=== PATIENT | female | born 2000 | race Caucasian/White ===

== ENCOUNTER 2023-01-03 02:03 | Emergency (ER) | payer SELFPAY ==
[~2023-01-03] VITALS: Ht 165.1 cm; Wt 86.0 kg
[2023-01-03 02:09] VITALS: BP 133/88
== END 2023-01-03 08:13 | disposition left against medical advice (07) ==
LOC: ER 02:03
DX: Z53.21 Procedure and treatment not carried out due to patient leaving prior to being seen by health care provider (principal)
CPT/HCPCS: 99281

== ENCOUNTER 2024-08-18 09:34 | Emergency (ER) | payer MEDICAID ==
[~2024-08-18] VITALS: Ht 165.1 cm; Wt 73.0 kg
[2024-08-18 09:38] VITALS: O2SAT 99
[2024-08-18] MEDS ORDERED: DOCU-150 MT (11:07)
[2024-08-18] MEDS ORDERED: POLY17PO3 MT (11:07)
[2024-08-18] MEDS ORDERED: DIBU28OI RC (11:07)
[2024-08-18 11:56] VITALS: BP 127/70; PULSE 81; RESP 16; TEMP 36.89184; O2SAT 99
== END 2024-08-18 12:10 | disposition home or self-care (01) ==
LOC: ER 09:34
DX: K59.00 Constipation, unspecified (principal)
CPT/HCPCS: 99282

== ENCOUNTER 2024-09-15 11:33 | Emergency (ER) | payer MEDICAID, MEDICARE ==
[~2024-09-15] VITALS: Ht 165.1 cm; Wt 72.0 kg
[~2024-09-15 11:33] MED LIST: DIBU28OI RC; DOCU-422 MT; POLY17PO3 MT
[2024-09-15 11:49] VITALS: O2SAT 100
[2024-09-15 13:14] LABS: CHLORIDE 105 mEq/L (98-107); POTASSIUM 3.6 mEq/L (3.5-5.1); SODIUM 139 mEq/L (136-145)
[2024-09-15 13:15] LABS: CALCIUM 9.8 mg/dL (8.7-10.4); CARBON DIOXIDE 24 mEq/L (21-32)
[2024-09-15 13:16] LABS: BASOPHILS % 0.9 % (0.0-2.0); EOSINOPHILS % 1.1 % (0.0-5.0); HEMATOCRIT. 46.2 % (36.0-48.0); HEMOGLOBIN. 15.8 g/dL (12.0-16.0); LYMPHOCYTES % 44.6 % (20.0-50.0); MEAN CORPUSCULAR HEMOGLOBIN 30.8 pg (28.0-32.0); MEAN CORPUSCULAR HGB CONC 34.3 g/dL (31.0-37.0); MEAN CORPUSCULAR VOLUME 89.6 fL (81.0-99.0); MEAN PLATELET VOLUME 9.1 fl (7.4-10.4); MONOCYTES % 4.8 % (2.0-8.0); NEUTROPHILS % 48.6 % (40.0-76.0); PLATELET 285 x1000/uL (130-400); RED BLOOD CELL COUNT 5.15 mill/uL (4.2-5.4); WHITE BLOOD COUNT 5.6 x1000/uL (4.5-11.0)
[2024-09-15 13:20] LABS: CREATININE 0.7 mg/dL (0.6-1.0); GLUCOSE 89 mg/dL (70-105); UREA NITROGEN BLOOD 7 mg/dL (9-23)
[2024-09-15] MEDS: MAGNESIUM/ALUMINUM HYDROXIDE/SIMETHICONE 30ML UDC PO ONE (13:23)
[2024-09-15] MEDS: FAMOTIDINE 20MG TABLET PO ONE (13:23)
[2024-09-15 14:18] LABS: HCG SCREEN NEGATIVE
[2024-09-15 14:23] LABS: TROPONIN I HIGH SENSITIVITY < 4 ng/L (3.0-34)
[2024-09-15 16:01] VITALS: BP 118/74; PULSE 80; RESP 16; TEMP 37.00296; O2SAT 100
== END 2024-09-15 16:02 | disposition home or self-care (01) ==
LOC: ER 11:33
DX: R13.10 Dysphagia, unspecified (principal); F41.9 Anxiety disorder, unspecified; F12.19 Cannabis abuse with unspecified cannabis-induced disorder
CPT/HCPCS: 36415; 71045; 80048; 84484; 84703; 85025; 85379; 93005; 99285

== ENCOUNTER 2024-09-17 11:11 | Emergency (ER) | payer MEDICARE ==
[~2024-09-17] VITALS: Ht 165.1 cm; Wt 73.0 kg
[2024-09-17 11:18] VITALS: BP 128/82; TEMP 98.8; O2SAT 100
[2024-09-17 11:22] VITALS: PULSE 134; RESP 18; O2SAT 96
[2024-09-17] MEDS ORDERED: ALPRAZOLAM 0.25 MG TABLET PO ONE (11:30)
[2024-09-17] MEDS ORDERED: ALPRAZOLAM 0.25 MG TABLET PO NR (13:45)
== END 2024-09-17 16:15 | disposition home or self-care (01) ==
LOC: ER 11:11
DX: R06.4 Hyperventilation (principal); F41.9 Anxiety disorder, unspecified
CPT/HCPCS: 99281